=== PATIENT | female | born 1990 | race Caucasian/White ===

== ENCOUNTER 2024-10-25 02:43 | Outpatient (RCR) | payer MEDICAID, SELFPAY ==
[2024-10-24] MEDS: Normal Saline Flush 10 ML SYR IVP (09:38)
[2024-10-25] MEDS: Normal Saline Flush 10 ML SYR IVP (14:00)
== END 2024-11-20 23:59 | disposition home or self-care (01) ==
LOC: INF 02:43
PROVIDERS: PCP Internal Medicine; Visit Provider Family Medicine
DX: D66 Hereditary factor VIII deficiency (principal)
CPT/HCPCS: 96374; J7192